=== PATIENT | male | born 1960 | race Caucasian/White ===

== ENCOUNTER 2021-09-22 21:42 | Emergency (ER) | payer BC ==
[2021-09-22] MEDS ORDERED: Boostrix 0.5 ML (Tdap) VIAL ONE (22:17)
[2021-09-22 22:21] LABS: #Basophils 0.1 thou/uL (0.0-0.2); #Eosinphils 0.2 thou/uL (0.0-0.7); #Lymphocytes 3.1 thou/uL (1.20-3.40); #Monocytes 0.8 thou/uL (0.11-0.59); #Neutrophils 2.7 thou/uL (1.40-6.50); %Basophils 1.9 % (0.0-1.0); %Neutrophils 39.2 % (42.0-75.0); Hemoglobin 14.8 g/dL (14.0-18.0); Mean Corpuscular HGB CONC 32.5 g/dL (32.0-36.0); Mean Corpuscular Hemoglobin 30.7 pg (27.0-31.0); Mean Corpuscular Volume 94.6 fL (78.0-98.0); Mean Platelet Volume 9.8 fL (7.4-10.4); Platelet Count 212 thou/uL (130-400); RBC Distribution Width 11.3 % (11.5-14.5); Red Blood Cell (RBC) Count 4.82 mill/uL (4.70-6.10); White Blood Cell (WBC) Count 6.9 thou/uL (4.8-10.8)
[2021-09-22 22:25] LABS: PTT 25.1 sec (22.9-36.1); Prothrombin Time 12.9 sec (12.0-14.7)
[2021-09-22 22:34] LABS: ALT (SGPT) 44 U/L (8-55); AST (SGOT) 37 U/L (5-34); Albumin 4.4 g/dL (3.4-4.8); Alkaline Phosphatase 44 U/L (40-110); Anion Gap 16 mmol/L (10-20); BUN (Urea Nitrogen) 16 mg/dL (8.4-25.7); Bilirubin, Total 0.6 mg/dL (0.2-1.2); Calc. Creatinine Clearance 0 mL/min (70-130); Calcium 9.6 mg/dL (7.8-10.44); Carbon Dioxide 23 mmol/L (23-31); Chloride 104 mmol/L (98-107); Glucose 92 mg/dL (80-115); Potassium 3.9 mmol/L (3.5-5.1); Protein, Total 7.4 g/dL (5.8-8.1); Sodium 139 mmol/L (136-145)
[2021-09-22 23:25] LABS: Clarity Clear (Clear)
[2021-09-22 23:26] LABS: Bilirubin Negative (Negative); Blood, Urine Negative (Negative); Glucose, Urine (Dipstick) Negative (Negative); Ketone, Urine Negative (Negative); Leukocyte Negative (Negative); Nitrite Negative (Negative); Protein, Urine (Dipstick) Negative (Neg-Trace); Specific Gravity, Urine 1.008 (1.002-1.036); Urobilinogen 0.2 mg/dL (Less than 2)
[2021-09-23 05:14] LABS: #Basophils 0.1 thou/uL (0.0-0.2); #Eosinphils 0.1 thou/uL (0.0-0.7); #Lymphocytes 1.8 thou/uL (1.20-3.40); #Monocytes 0.9 thou/uL (0.11-0.59); #Neutrophils 7.2 thou/uL (1.40-6.50); %Eosinophils 1.4 % (0.0-10.0); %Lymphocytes 18.2 % (21.0-51.0); %Monocytes 8.5 % (0.0-10.0); Hemoglobin 14.5 g/dL (14.0-18.0); Mean Corpuscular HGB CONC 32.9 g/dL (32.0-36.0); Mean Corpuscular Hemoglobin 31.2 pg (27.0-31.0); Mean Corpuscular Volume 94.8 fL (78.0-98.0); Platelet Count 209 thou/uL (130-400); RBC Distribution Width 11.2 % (11.5-14.5); Red Blood Cell (RBC) Count 4.65 mill/uL (4.70-6.10); White Blood Cell (WBC) Count 10.1 thou/uL (4.8-10.8)
[2021-09-23 05:26] LABS: INR-International Normal Ratio 1.1; Prothrombin Time 14.1 sec (12.0-14.7)
[2021-09-23 05:27] LABS: PTT 25.4 sec (22.9-36.1)
[2021-09-23 05:33] LABS: ALT (SGPT) 39 U/L (8-55); AST (SGOT) 34 U/L (5-34); Alkaline Phosphatase 39 U/L (40-110); Anion Gap 17 mmol/L (10-20); BUN (Urea Nitrogen) 15 mg/dL (8.4-25.7); Bilirubin, Total 0.7 mg/dL (0.2-1.2); CK (CPK) 109 U/L (30-200); Calc. Creatinine Clearance 0 mL/min (70-130); Calcium 9.1 mg/dL (7.8-10.44); Carbon Dioxide 23 mmol/L (23-31); Chloride 104 mmol/L (98-107); Globulin 2.6 g/dL (2.4-3.5); Glucose 124 mg/dL (80-115); Potassium 4.3 mmol/L (3.5-5.1); Protein, Total 6.6 g/dL (5.8-8.1); Sodium 140 mmol/L (136-145)
== END 2021-09-23 05:49 | disposition home or self-care (01) ==
LOC: NAV ERS 21:42
DX: T63.091A Toxic effect of venom of other snake, accidental (unintentional), initial encounter (principal); Z23 Encounter for immunization
CPT/HCPCS: 36415; 80053; 81003; 82550; 85025; 85384; 85610; 85730; 90471; 90715; 93005